=== PATIENT | female | born 1975 | race Caucasian/White ===

== ENCOUNTER 2016-11-04 07:40 | Day surgery (SDC) | payer BC ==
[2016-11-02 12:40] VITALS: BMI 23.8
[2016-11-04] MEDS ORDERED: PROPOFOL 20 ML ONE (07:46)
[2016-11-04] MEDS ORDERED: LIDOCAINE HCL/PF 2% SDV 5ML VIAL ONE (07:47)
[2016-11-04 10:12] VITALS: TEMP 98
[2016-11-04 10:19] VITALS: PULSE 64
[2016-11-04 10:20] VITALS: BP 112/66
--- NOTE | 2016-11-05 11:41 | PATH ---
Surgical Pathology Report Patient Name: KENDRA STRATTON [facility]. Rec. #: [id number] /Age/Gender: 1975 (Age: 41) / F Account: [id number] Location: [facility] [place] [facility] Taken: 11/04/2016 Received: 11/04/2016 Reported: 11/05/2016 Physicians: Axel Floyd M.D. Specimen(s) Received A: BX DUODENUM B: BX ANTRUM Clinical History GERD Gastritis, rule out H. Pylori, celiac, gastric erosions Final Diagnosis A. DUODENUM, BIOPSY: DUODENAL MUCOSA WITH NO PATHOLOGIC CHANGES. NO HISTOLOGIC EVIDENCE OF GLUTEN SENSITIVE ENTEROPATHY (CELIAC SPRUE) IDENTIFIED. B. STOMACH, ANTRUM, BIOPSY: FOCAL MILD CHRONIC GASTRITIS. IMMUNOSTAIN FOR H. PYLORI IS NEGATIVE. Electronically Signed Steven Peralta M.D. Gross Description A. Received in formalin, labeled "duodenum" are 2 parra, irregular portions of soft tissue measuring 0.4 and 0.7 cm. in greatest dimension. The specimens are submitted in toto in one cassette. B. Received in formalin, labeled "antrum" are 2 parra, irregular portions of soft tissue measuring 0.4 and 0.5 cm. in greatest dimension. The specimens are submitted in toto in one cassette. 11/04/201611/04/2016
== END 2016-11-04 10:10 | disposition home or self-care (01) ==
LOC: FASU 07:40
PROVIDERS: ATTEND Internal Medicine Gastroenterology
PROC: 0DB98ZX Excision of Duodenum, Via Natural or Artificial Opening Endoscopic, Diagnostic (ICD-10-PCS; principal; 2016-11-04 09:20)
PROC: 0DB68ZX Excision of Stomach, Via Natural or Artificial Opening Endoscopic, Diagnostic (ICD-10-PCS; 2016-11-04 09:20)
DX: K29.50 Unspecified chronic gastritis without bleeding (principal); K25.9 Gastric ulcer, unspecified as acute or chronic, without hemorrhage or perforation
CPT/HCPCS: 84703; 88305-TC; 88342-TC